=== PATIENT | female | born 1995 | race Caucasian/White ===

== ENCOUNTER → 2019-09-17 23:19 | Observation (INO) ==
[2019-09-17 16:03] LABS: Bilirubin,Urine Negative (Negative); Blood,Urine Negative (Negative); Clarity,Urine Cloudy (Clear); Color,Urine Yellow (Yellow); Glucose,Urine (UA) Normal (Normal); Ketones,Urine Negative (Negative); Leukocyte Esterase,Urine Large (Negative); Nitrite,Urine Negative (Negative); PH,Urine 7.5 pH Units (5.0-8.0); Protein,Urine Negative (Neg-Trace); Specific Gravity,Urine 1.011 (1.010-1.025); Urobilinogen,Urine Normal (Normal)
[2019-09-17 16:10] LABS: Bacteria,Urine Few per hpf (None-Few); Hyaline Casts,Urine None Seen per lpf (None-Few); RBC,Urine 0-3 per hpf (0-3); Squamous Epithelial Cell,Urine Many per lpf (None-Few); WBC,Urine 30-50 per hpf (0-3)
[2019-09-17 16:31] LABS: Basophils % 0.3 %; Eosinophils # 0.3 K/mcL (0.0-0.6); Hematocrit 35.3 % (35.3-44.9); Hemoglobin 11.9 g/dL (11.5-15.4); Immature Granulocytes % 0.8 % (0-4); Lymphocytes # 2.3 K/mcL (0.6-4.6); Lymphocytes % 15.8 %; Mean Corpuscular HGB Conc 33.7 g/dL (31.6-35.5); Mean Corpuscular Hemoglobin 30.7 pg (28.0-33.3); Mean Platelet Volume 11.1 fL (9.4-12.4); Monocytes # 0.9 K/mcL (0.0-1.3); Monocytes % 5.9 %; Neutrophils # 11.2 K/mcL (1.6-8.9); Platelet Count 264 K/mcL (140-400); Red Blood Count 3.88 M/mcL (3.82-4.97); Red Cell Distribution Width 13.5 % (11.5-14.5); Segmented Neutrophils % 75.2 %; White Blood Count 14.9 K/mcL (4.3-11.1)
[2019-09-17 22:13] LABS: Candida DNA DETECTED (Not Detect); Gardnerella DNA DETECTED (Not Detect); Trichomonas DNA Not Detected (Not Detect)
[~2019-09-17 23:19] MED LIST: Betamethasone Acet/SodPhos 30 MG/5 ML VIAL IM ONE; Betamethasone Acet/SodPhos 30 MG/5 ML VIAL IM SCH; NIFEdipine 10 MG CAPSULE PO ONE; NIFEdipine 10 MG CAPSULE PO SCH; Ringers Solution, Lactated 1,000 ML ONE; Ringers Solution, Lactated 500 ML IVC ONE; Ringers Solution, Lactated 500 ML IVC SCH; Terbutaline 1 MG/ML VIAL SQ ONE; ceFAZolin 2,000 MG in 0.9 % Sodium Chloride 100 ML IVPB SCH; metroNIDAZOLE 500 MG TABLET PO ONE
== END | disposition home or self-care (01) ==
LOC: 1NENULAB
PROVIDERS: ADMIT Obstetrics & Gynecology; ATTEND Obstetrics & Gynecology

== ENCOUNTER 2021-09-30 20:36 | Inpatient (IN) ==
[~2021-09-30 20:36] MED LIST changes: +*HR* Nalbuphine 10 MG/ML AMPUL IV PRN; -Betamethasone Acet/SodPhos 30 MG/5 ML VIAL IM ONE; -Betamethasone Acet/SodPhos 30 MG/5 ML VIAL IM SCH; +Famotidine 20 MG/2 ML VIAL IVP PRN; +Metoclopramide 10 MG/2 ML VIAL IVP PRN; -NIFEdipine 10 MG CAPSULE PO ONE; -NIFEdipine 10 MG CAPSULE PO SCH; +Naloxone 0.4 MG/ML INJ IVP PRN; +Ondansetron 4 MG/2 ML VIAL IVP PRN; -Ringers Solution, Lactated 1,000 ML ONE; -Ringers Solution, Lactated 500 ML IVC ONE; -Ringers Solution, Lactated 500 ML IVC SCH; -Terbutaline 1 MG/ML VIAL SQ ONE; -ceFAZolin 2,000 MG in 0.9 % Sodium Chloride 100 ML IVPB SCH; -metroNIDAZOLE 500 MG TABLET PO ONE
[2021-09-30] MEDS: Ringers Solution, Lactated 1,000 ML IVC SCH ×2 (21:06→22:19)
[2021-09-30 21:09] LABS: Basophils % 0.2 %; Eosinophils # 0.2 K/mcL (0.0-0.6); Eosinophils % 1.5 %; Hematocrit 33.7 % (35.3-44.9); Hemoglobin 11.3 g/dL (11.5-15.4); Immature Granulocytes % 0.9 % (0-4); Lymphocytes # 2.7 K/mcL (0.6-4.6); Mean Corpuscular HGB Conc 33.5 g/dL (31.6-35.5); Mean Corpuscular Hemoglobin 29.4 pg (28.0-33.3); Mean Corpuscular Volume 87.8 fL (83.0-100.0); Mean Platelet Volume 11.1 fL (9.4-12.4); Monocytes # 0.8 K/mcL (0.0-1.3); Monocytes % 5.7 %; Platelet Count 357 K/mcL (140-400); Red Blood Count 3.84 M/mcL (3.82-4.97); Red Cell Distribution Width 13.8 % (11.5-14.5); Segmented Neutrophils % 73.7 %; White Blood Count 14.9 K/mcL (4.3-11.1)
[2021-09-30 21:17] LABS: Amphetamine Screen,Urine Negative ng/mL (Cutoff=1000); Barbiturate Screen,Urine Negative ng/mL (Cutoff=200); Benzodiazepines Screen,Urine Negative ng/mL (Cutoff=200); Cannabinoid Screen,Urine Negative ng/mL (Cutoff = 50); Cocaine Screen,Urine Negative ng/mL (Cutoff= 300); Opiate Screen,Urine Negative ng/mL (Cutoff=300); Phencyclidine Screen,Urine Negative ng/mL (Cutoff=25)
[2021-09-30] MEDS ORDERED: *HR* FentaNYL (PF) 100 MCG/2 ML VIAL EP ONE (21:29)
[2021-09-30] MEDS ORDERED: EPHEDrine 50 MG/ML VIAL IVP PRN (21:29)
[2021-09-30] MEDS ORDERED: Ropivacaine/PF 0.2% 20 ML VIAL EP ONE (21:29)
[2021-09-30] MEDS ORDERED: Epidural Premix (fent/bupiv) 110 ML EP SCH (21:30)
[2021-09-30] MEDS ORDERED: Ropivacaine/PF 0.2% 20 ML VIAL ONE (21:53)
[2021-09-30] MEDS ORDERED: *HR* FentaNYL (PF) 100 MCG/2 ML VIAL ONE (21:53)
[2021-10-01] MEDS ORDERED: Oxytocin 30 UNIT/503 ML BAG IVC ONE (00:24)
[2021-10-01] MEDS ORDERED: Rho Immune Globulin 1,500 UNIT SYRINGE IM PRN (01:04)
[2021-10-01] MEDS ORDERED: Benzocaine/Menthol 56 GM AEROSOL SPRAY TP PRN ×2 (01:04)
[2021-10-01] MEDS ORDERED: Measles/Mumps/Rubella Vacc 0.5 ML VIAL SQ PRN (01:04)
[2021-10-01] MEDS ORDERED: Acetaminophen 325 MG TABLET PO SCH (01:04)
[2021-10-01] MEDS ORDERED: Lanolin 7 G OINT...G. TP PRN (01:04)
[2021-10-01] MEDS ORDERED: Ondansetron ODT 4 MG TAB.RAPDIS SL PRN (01:04)
[2021-10-01] MEDS ORDERED: NON-FORMULARY MEDICATION 1 EACH EACH (Prenatal Tablet 1 TAB) PO SCH (01:15)
[2021-10-01] MEDS ORDERED: Ibuprofen 600 MG TABLET PO SCH (04:00)
[2021-10-01 04:47] LABS: Basophils % 0.2 %; Eosinophils # 0.1 K/mcL (0.0-0.6); Eosinophils % 0.3 %; Hematocrit 32.3 % (35.3-44.9); Hemoglobin 10.9 g/dL (11.5-15.4); Immature Granulocytes % 0.6 % (0-4); Lymphocytes # 1.7 K/mcL (0.6-4.6); Lymphocytes % 7.8 %; Mean Corpuscular HGB Conc 33.7 g/dL (31.6-35.5); Mean Corpuscular Hemoglobin 29.5 pg (28.0-33.3); Mean Corpuscular Volume 87.3 fL (83.0-100.0); Monocytes % 4.8 %; Neutrophils # 18.3 K/mcL (1.6-8.9); Platelet Count 319 K/mcL (140-400); Red Cell Distribution Width 13.7 % (11.5-14.5); Segmented Neutrophils % 86.3 %; White Blood Count 21.2 K/mcL (4.3-11.1)
[2021-10-01] MEDS: Ibuprofen 600 MG TABLET PO PRN ×3 (05:23→21:09)
[2021-10-01] MEDS: Acetaminophen 325 MG TABLET PO PRN ×3 (08:22→21:08)
[2021-10-01] MEDS: Prenatal Vit/FA 1 EACH TABLET PO SCH (08:22)
[2021-10-01] MEDS ORDERED: Prenatal Vit/FA 1 EACH TABLET PO SCH (09:00)
[2021-10-02] MEDS: Ibuprofen 600 MG TABLET PO PRN ×2 (03:26→09:35)
[2021-10-02] MEDS: Acetaminophen 325 MG TABLET PO PRN ×2 (03:26→09:36)
[2021-10-02 05:44] VITALS: BP 118/70; PULSE 77; TEMP 98.4; O2SAT 99
[2021-10-02] MEDS: Prenatal Vit/FA 1 EACH TABLET PO SCH (09:35)
== END 2021-10-02 11:55 | disposition home or self-care (01) | DRG 768 ==
LOC: 1NENULAB → 1NENUOBS 10-01 02:08
PROVIDERS: ADMIT Obstetrics & Gynecology; ATTEND Obstetrics & Gynecology